=== PATIENT | male | born 1955 | race Caucasian/White ===

== ENCOUNTER 2018-06-15 21:34 | Emergency (ER) | payer OTHER ==
[~2018-06-15] VITALS: Ht 167.6 cm; Wt 78.0 kg
[2018-06-15 21:36] VITALS: Ht 167.6 cm; Wt 78.0 kg
[2018-06-15 23:56] VITALS: BP 160/78
== END 2018-06-15 23:56 | disposition home or self-care (01) ==
LOC: ED 21:34
DX: L50.9 Urticaria, unspecified (principal); I10 Essential (primary) hypertension; E11.9 Type 2 diabetes mellitus without complications; Z91.013 Allergy to seafood
CPT/HCPCS: J0171; J1200; J2930

== ENCOUNTER 2018-11-23 23:50 | Emergency (ER) | payer OTHER ==
[~2018-11-23] VITALS: Ht 167.6 cm; Wt 78.0 kg
[2018-11-23 23:54] VITALS: Ht 167.6 cm; Wt 78.0 kg
[2018-11-24 00:36] LABS: BASOPHIL % 0.5 % (0-2); PLATELET COUNT 301 x10^3mcL (130-400); RED CELL DISTRIBUTION WIDTH 14.2 % (11.5-14.5)
[2018-11-24 00:49] LABS: CALCIUM 8.7 mg/dL (8.5-10.1); CARBON DIOXIDE 26.5 mmol/L (21-32); CHLORIDE SERUM 106 mmol/L (98-107); CREATININE SERUM 1.2 mg/dL (0.7-1.3); GFR1 > 60 mL/min; GLUCOSE SERUM 100 mg/dL (74-106); POTASSIUM SERUM 3.7 mmol/L (3.5-5.1); SODIUM SERUM 142 mmol/L (136-145)
[2018-11-24 00:54] LABS: ALBUMIN 3.8 g/dL (3.4-5.0); ALKALINE PHOSPHATASE 80 U/L (46-116); ALT/SGPT 43 U/L (16-63); AST/SGOT 40 U/L (15-37); BILIRUBIN TOTAL 0.2 mg/dL (0.20-1.00)
[2018-11-24 01:24] VITALS: BP 151/86
== END 2018-11-24 01:24 | disposition home or self-care (01) ==
LOC: ED 23:50
PROVIDERS: Emergency Medicine
DX: R07.89 Other chest pain (principal); I10 Essential (primary) hypertension; E11.9 Type 2 diabetes mellitus without complications; E78.5 Hyperlipidemia, unspecified; G40.909 Epilepsy, unspecified, not intractable, without status epilepticus; E78.00 Pure hypercholesterolemia, unspecified; Z91.013 Allergy to seafood
CPT/HCPCS: 36415; Q0092

== ENCOUNTER 2019-12-23 22:41 | Emergency (ER) | payer OTHER, SELFPAY ==
[~2019-12-23] VITALS: Ht 167.6 cm; Wt 78.0 kg
[2019-12-23 22:43] VITALS: Ht 167.6 cm; Wt 78.0 kg
[2019-12-24 00:14] LABS: BASOPHIL % 0.5 % (0-2); PLATELET COUNT 413 x10^3mcL (130-400); RED CELL DISTRIBUTION WIDTH 13.3 % (11.5-14.5)
[2019-12-24 00:18] LABS: microscopic required? YES; urine erythrocyte NEGATIVE (NEGATIVE)
[2019-12-24 00:24] LABS: CALCIUM 9.8 mg/dL (8.5-10.1); CARBON DIOXIDE 25.4 mmol/L (21-32); CREATININE SERUM 1.3 mg/dL (0.7-1.3); POTASSIUM SERUM 4.8 mmol/L (3.5-5.1)
[2019-12-24 00:38] LABS: ALBUMIN 3.6 g/dL (3.4-5.0); BILIRUBIN TOTAL 0.4 mg/dL (0.20-1.00); TOTAL PROTEIN, SERUM 7.1 g/dL (6.4-8.2)
[2019-12-24 00:45] LABS: CK-MB 0.7 ng/mL (0-3.6)
[2019-12-24 01:54] VITALS: BP 177/83
== END 2019-12-24 01:54 | disposition home or self-care (01) ==
LOC: ED 22:41
PROVIDERS: Emergency Medicine
DX: J06.9 Acute upper respiratory infection, unspecified (principal); I10 Essential (primary) hypertension; E11.9 Type 2 diabetes mellitus without complications; E78.00 Pure hypercholesterolemia, unspecified; Z03.818 Encounter for observation for suspected exposure to other biological agents ruled out
CPT/HCPCS: 36415; 87804; J7030; Q0092